=== PATIENT | male | born 1990 | race Caucasian/White ===

== ENCOUNTER 2024-09-19 13:09 | Outpatient (CLI) | payer BC, SELFPAY | END 2024-09-19 13:10 | disposition home or self-care (01) | LOC: NFLDUCREF 13:10 | PROVIDERS: PCP Family Medicine; Visit Provider Physician Assistant Surgical | DX: L03.119 Cellulitis of unspecified part of limb (principal) | CPT/HCPCS: 87070; 87186 ==